=== PATIENT | female | born 1960 | race Caucasian/White ===

== ENCOUNTER → 2016-11-30 | Day surgery (SDC) | payer BC ==
[~2016-11-30] MED LIST: ABILIFY PO; ABILIFY10 MG PO; ABILIFY20 MG PO; ABILIFY30 MG PO; ALENDRONATE SOD70 M1 PO; BENICAR20 MG PO; CYTOMEL5 MCG PO; FISH OIL 1,0001 EACH PO; FISH OIL CONCET1 CAP PO; FOSAMAX70 MG PO; LEXAPRO PO; LEXAPRO20 MG PO; MULTIPLE VITAM1 EAC1; MULTIVITAMINS1 EAC2 PO; NORTRIPTYLINE H50 MG PO; PAMELOR PO; PAMELOR25 M2 PO; PAMELOR50 MG PO; PROZAC PO; TUMS200 MG; TUMS500 MG PO; VITAMIN D1000 UNI1 PO; VITAMIN D2000 UNIT PO
--- NOTE | ~2016-11-30 | ECT ---
Unit #: [id number] #: [id number] Patient: RAMBO ROSARIO [id number] [place] [id number] [id number] O MR#: [id number] NAME: RAMBO ROSARIO ROOM: Age: 56 Sex: F Admission Date: 11/30/2016 : 1960 Discharge Date: Attending Physician: Jabier Jernigan M.D. Primary Care Physician: Tomi Morrison III, M.D. ECT NOTE DATE OF TREATMENT 11/30/2016 TREATMENT NUMBER 7, maintenance TREATMENT MODALITY Unilateral ECT ANESTHESIA Glycopyrrolate: 0.2 mg Brevital: 130 mg Succinylcholine: 100 mg TREATMENT PARAMETERS Charge: 360 millicoulombs Pulse Width: 1.0 milliseconds Frequency: 50 Hertz Duration: 4.5 seconds Current: 800 milliamps TREATMENT DELIVERED Energy: 80.7 joules Impedance: 268 ohms Charge: 360 millicoulombs SEIZURE MEASURES OMS: 10 seconds EE seconds COMPLICATIONS None. SUMMARY The patient had a good seizure with both OMS and EEG measures. Depression seems to be pretty well maintained with her maintenance ECT's every 2 months, so will bring her back in 8 weeks for her next ECT and just continue to treat and follow. DIFFERENTIAL DIAGNOSES AXIS I: F33.2. AXIS II: Deferred. AXIS III: Nothing acute. Unit #: [id number] #: [id number] Patient: RAMBO ROSARIO Dictated by... Ila Avendaño/mimi TD: 12/01/2016 13:46 JOB #: [id number] ECT NOTE X Jabier Jernigan MD <ELECTRONICALLY SIGNED> 05/14/17 1702 X ECT
== END | disposition home or self-care (01) ==
LOC: CSUR 07:41
DX: F33.2 Major depressive disorder, recurrent severe without psychotic features (principal); I10 Essential (primary) hypertension; M81.0 Age-related osteoporosis without current pathological fracture; Z88.0 Allergy status to penicillin; Z88.1 Allergy status to other antibiotic agents; Z79.899 Other long term (current) drug therapy; Z98.890 Other specified postprocedural states
CPT/HCPCS: 90870; J0330

== ENCOUNTER → 2017-01-25 | Day surgery (SDC) | payer BC ==
--- NOTE | ~2017-01-25 | ECT ---
Unit #: [id number] #: [id number] Patient: RAMBO ROSARIO [id number] [place] [address] [id number] O MR#: [id number] NAME: RAMBO ROSARIO ROOM: Age: 56 Sex: F Admission Date: 01/25/2017 : 1960 Discharge Date: Attending Physician: Jabier Jernigan M.D. Primary Care Physician: Tomi Morrison III, M.D. ECT NOTE DATE OF TREATMENT 01/25/2017 TREATMENT NUMBER 8, maintenance TREATMENT MODALITY Unilateral ECT. ANESTHESIA Glycopyrrolate: 0.2 mg. Brevital: 130 mg. Succinylcholine: 120 mg. TREATMENT PARAMETERS Charge: 360 millicoulombs Pulse Width: 1.0 milliseconds Frequency: 50 Hertz Duration: 4.5 seconds Current: 800 milliamps TREATMENT DELIVERED Energy: 82.5 joules Impedance: 277 ohms Charge: 360 millicoulombs SEIZURE MEASURES OMS: 11 seconds EE seconds COMPLICATIONS None. SUMMARY The patient had a good seizure with her maintenance ECTs. She has done pretty well in the last 8 weeks. We will (1) __ her ECTs down to 10 weeks and just treat and follow. DIFFERENTIAL DIAGNOSES AXIS I: F33.2 AXIS II: Deferred. AXIS III: Nothing acute. Unit #: [id number] #: [id number] Patient: RAMBO ROSARIO Dictated by... Ila Avendaño/yana TD: 01/25/2017 09:58 JOB #: [id number] ECT NOTE Page 1 of 1 X Jabier Jernigan MD <ELECTRONICALLY SIGNED> 04/22/17 1207 X ECT
== END | disposition home or self-care (01) ==
LOC: CSUR 07:42
DX: F33.2 Major depressive disorder, recurrent severe without psychotic features (principal); I10 Essential (primary) hypertension; Z79.899 Other long term (current) drug therapy; M81.0 Age-related osteoporosis without current pathological fracture; Z87.898 Personal history of other specified conditions; Z85.820 Personal history of malignant melanoma of skin; Z88.0 Allergy status to penicillin; Z88.4 Allergy status to anesthetic agent
CPT/HCPCS: 90870; J0330

== ENCOUNTER → 2017-04-05 | Day surgery (SDC) | payer BC ==
--- NOTE | ~2017-04-05 | ECT ---
Unit #: [id number] #: [id number] Patient: RAMBO ROSARIO [id number] [id number] O MR#: [id number] NAME: RAMBO ROSARIO. ROOM: Age: 57 Sex: F Admission Date: 04/05/2017 : 1960 Discharge Date: Attending Physician: Jabier Jernigan M.D. Referring Physician: Jabier Jernigan M.D. Primary Care Physician: Tomi Morrison III, M.D. ECT NOTE DATE OF TREATMENT 04/05/2017 TREATMENT NUMBER 9 maintenance TREATMENT MODALITY Unilateral ECT. ANESTHESIA Glycopyrrolate: 0.2 mg. Brevital: 130 mg. Succinylcholine: 100 mg. TREATMENT PARAMETERS Charge: 360 millicoulombs Pulse Width: 1.0 milliseconds Frequency: 50 Hertz Duration: 4.5 seconds Current: 800 milliamps TREATMENT DELIVERED Energy: 82.3 joules Impedance: 277 ohms Charge: 360 millicoulombs SEIZURE MEASURES OMS: 9 seconds EE seconds COMPLICATIONS None. SUMMARY The patient had a good seizure with both OMS and EEG measures. Depression seems to be pretty well maintained with her maintenance ECTs. During the last several weeks, she has started to note some increased depressive symptoms. We started her on Lexapro, and she did have some initial response to it, but that seems to have waned a bit. I will increase her Lexapro to 20 mg a day, and once we get her established with her new ECT practitioner, she will resume her maintenance ECT in the next few months. DIFFERENTIAL DIAGNOSES AXIS I: F33.2 Unit #: [id number] #: [id number] Patient: RAMBO ROSARIO AXIS II: Deferred. AXIS III: Nothing acute. Dictated by... Ila Avendaño/yana TD: 04/05/2017 09:39 JOB #: [id number] ECT NOTE Page 1 of 1 X Jabier Jernigan MD <ELECTRONICALLY SIGNED> 04/22/17 1207 X ECT
== END | disposition home or self-care (01) ==
LOC: CSUR 07:47
DX: F33.2 Major depressive disorder, recurrent severe without psychotic features (principal); I10 Essential (primary) hypertension
CPT/HCPCS: 90870

== ENCOUNTER 2017-04-23 12:10 | Emergency (ER) | payer BC ==
[~2017-04-23] VITALS: Ht 167.6 cm; Wt 57.6 kg
--- NOTE | ~2017-04-23 | MR18 ---
[facility] A Service of [facility] & [facility] RADIOLOGY TEXT RESULTS PATIENT: RAMBO ROSARIO LOCATION: [facility] : 58 UNIT #: [id number] AGE: [address]: Kelin Conley MD SEX: F ORDER DR: [id number] [facility] [address] [place], [place] [address] [id number] MR#: [id number] #: [id number] NAME: RAMBO ROSARIO. : 1960 SEX: F STUDY DATE/TIME: 04/23/2017 16:44 UNIT: [facility] ROOM: STUDY DESCRIPTION: MR Brain Wo Contrast Attending Physician: Kelin Conley M.D. Ordering Physician: Tomi Morrison III, M.D. Primary Care Physician: Tomi Morrison III, M.D. MEDICAL IMAGING REPORT This report is preliminary unless electronic signature is present EXAM MRI brain 04/23/2017 HISTORY Tremors in arms/legs increased tremors arms legs, left greater than right 3-4 days less worse today. Difficulty walking. TECHNIQUE Following MR sequences were obtained through the brain: T1 sagittal and axial, FLAIR T2 diffusion-weighted gradient-echo axial. COMPARISON No prior imaging of brain for comparison. FINDINGS The brainstem is unremarkable. The cerebellum and cerebral hemispheres show normal hayes matter-white matter differentiation. No hemorrhage. No diffusion weighted hyperintensity to suggest acute to subacute ischemic change. Midline structures are nondisplaced. CSF intensity structure, posterior aspect of the posterior fossa, measuring approximately 2.6 cm x 4.1 cm x 4.4 cm, favored to be arachnoid cyst. There is some mass effect on cerebellum with no underlying signal abnormality in the cerebellum. This is favored to be of chronic time course. Comparison with any prior studies would be useful to assess for twisting frame changer time. There are mild periventricular signal changes probably reflecting sequelae of chronic microvascular ischemia. Tiny right frontal, anterior, and posterior foci of FLAIR and T2 hyperintensity. The larger of these is the posterior focus, measuring about 3-4 mm in diameter. No mass effect. Slightly hypodense on T1-weighted imaging. Favored to be a small focus of chronic microvascular ischemia. Midline structures are nondisplaced. Ventricles, cisterns, and sulci within normal limits of size and contour. No intraaxial mass effect. Major vascular flow voids appear intact. The visualized paranasal sinuses and mastoid air cells appear clear. [facility] A Service of [facility] & [facility] RADIOLOGY TEXT RESULTS PATIENT: RAMBO ROSARIO LOCATION: [facility] : 58 UNIT #: [id number] AGE: [address]: Kelin Conley MD SEX: F ORDER DR: IMPRESSION 1. There are no clearly acute abnormalities seen in the brain. If the patient has ongoing neurologic symptoms, consider follow up imaging. If followup imaging is performed, consider assessment with contrast-enhanced MRI, if the patient is a candidate for gadolinium-based contrast. 2. Mild periventricular probable sequelae of chronic microvascular ischemia. 3. 2 tiny foci of subcortical white matter on FLAIR and T2 hyperintensity in the right frontal lobe. The larger is posterior and measures about 3-4 mm in maximum diameter. No mass effect. Favored to be a small focus of chronic ischemic change. 4. There is a CSF intensity localized structure, posterior aspect of the posterior fossa. It measures approximately 4.1 cm x 2.6 cm x 4.4 cm. The appearance and location suggest arachnoid cyst. There is some mass effect on the subjacent cerebellum that I believe is chronic in time course. There are no abnormal signal changes in the cerebellum. Dictated by... Adonis Burris M.D. THIS IS AN ELECTRONICALLY VERIFIED REPORT Adonis Burris M.D. at 05/03/2017 6:15 PM Froylan TD: 04/23/2017 19:17 JOB #: [id number] MEDICAL IMAGING REPORT Page 1 of 1 COPY
[~2017-04-23 12:10] MED LIST changes: -ABILIFY30 MG PO; -ALENDRONATE SOD70 M1 PO; -LEXAPRO20 MG PO; -MULTIVITAMINS1 EAC2 PO; -PAMELOR50 MG PO; -TUMS500 MG PO; -VITAMIN D2000 UNIT PO
[2017-04-23 13:03] LABS: BASOPHIL% 0.5 % (0-2.5); EOSINOPHIL# 0.1 X10e3 (0-0.7); EOSINOPHIL% 0.9 % (0.0-7.0); HEMATOCRIT 42.5 % (35.0-45.0); HEMOGLOBIN 13.9 gm/dL (12.0-16.0); LYMPHOCYTE# 1.3 X10e3 (1.0-3.5); LYMPHOCYTE% 16.3 % (17.0-45.0); MEAN CELL VOLUME 101.2 FL (83-96); MEAN CORPUSCULAR HEMOGLOBIN 33.2 PG (28-34); MEAN CORPUSCULAR HGB CONC 32.8 g/dL (30-36); MEAN PLATELET VOLUME 10.2 FL (6.5-11.5); MONOCYTE# 0.5 X10e3 (0-1.0); MONOCYTE% 6.5 % (3.0-12.0); NEUTROPHIL% 75.8 % (40-75); PLATELET COUNT 219 X10e3 (140-420); RED CELL DISTRIBUTION WIDTH 13.8 % (11.0-15.5)
[2017-04-23 13:06] LABS: DIFF IND NO
[2017-04-23 13:12] LABS: POC - CKMB <1.0 ng/mL (0.0-7.9); POC - TROPONIN <0.05 ng/mL (<=0.05)
[2017-04-23 13:16] LABS: PARTIAL THROMBOPLASTIN TIME 26.2 SECONDS (23.5-31.3); PROTHROMBIN TIME (PATIENT) 10.9 SECONDS (10.0-11.7)
[2017-04-23 13:28] LABS: ALBUMIN SERUM 4.4 g/dL (3.5-5.0); BILIRUBIN, DIRECT 0.1 mg/dL (0.0-0.2); BILIRUBIN,INDIRECT 0.4 mg/dL (0.0-0.9); BILIRUBIN,TOTAL 0.5 mg/dL (0.2-2.0); BUN/CREATININE RATIO 22.5; CALCIUM SERUM 9.4 mg/dL (8.4-10.2); CREATININE SERUM 0.8 mg/dL (0.6-1.4); GLOM FILT RATE Estimated 81.3 mL/min (>60); MAGNESIUM 2.4 mg/dL (1.6-3.0); POTASSIUM 4.3 mmol/L (3.5-5.1); PROTEIN TOTAL SERUM 6.9 g/dL (6.0-8.3)
[2017-04-23 14:14] LABS: URINE SOURCE CLEAN CATCH
[2017-04-23 14:32] LABS: URINE APPEARANCE CLEAR; URINE BILIRUBIN NEG (NEG); URINE BLOOD NEG (NEG); URINE COLOR YELLOW; URINE GLUCOSE NEG (NEG); URINE KETONE NEG (NEG); URINE LEUKOCYTE ESTERASE TRACE (NEG); URINE NITRATE NEG (NEG); URINE PH 7.5 (5-8); URINE PROTEIN NEG (NEG); URINE SPECIFIC GRAVITY 1.011 (1.003-1.035); URINE UROBILINOGEN 0.2 MG/DL (NEG)
[2017-04-23 14:34] LABS: CULTURE INDICATED? YES; URBCS1 AUWI 0-2 /[HPF] (0-2); URINE BACTERIA AUWI 4+ (NEGATIVE); URINE SQUAMOUS EPITHELIAL CELL NONE SEEN /[HPF]
[2017-04-23 14:35] LABS: AMPHETAMINE NEG (NEG); BARBITURATES NEG (NEG); BENZODIAZEPINES NEG (NEG); COCAINE NEG (NEG); MARIJUANA NEG (NEG); OPIATES NEG (NEG); TRICYCLIC ANTIDEPRESSANTS POS (NEG); U METHADONE NEG (NEG)
[2017-04-23 14:49] LABS: POC - CKMB <1.0 ng/mL (0.0-7.9); POC - TROPONIN <0.05 ng/mL (<=0.05)
[2017-04-24] MEDS ORDERED: PAMELOR50 MG PO (22:36)
[2017-04-24] MEDS ORDERED: ALENDRONATE SOD70 M1 PO (22:37)
[2017-04-24] MEDS ORDERED: LEXAPRO20 MG PO (22:37)
[2017-04-24] MEDS ORDERED: ABILIFY30 MG PO (22:37)
[2017-04-24] MEDS ORDERED: MULTIVITAMINS1 EAC2 PO (22:37)
[2017-04-24] MEDS ORDERED: TUMS500 MG PO (22:38)
[2017-04-24] MEDS ORDERED: VITAMIN D2000 UNIT PO (22:38)
== END 2017-04-23 20:16 | disposition home or self-care (01) ==
LOC: CED 12:10
PROVIDERS: Emergency Medicine
DX: R25.1 Tremor, unspecified (principal); F32.9 Major depressive disorder, single episode, unspecified; Z88.0 Allergy status to penicillin; Z79.899 Other long term (current) drug therapy
CPT/HCPCS: 36415; 70551; 80048; 80076; 80307; 81003; 82553; 82947; 83735; 84484; 85025; 85610; 85730; 87086; 87088; 87186; 99284

== ENCOUNTER 2017-04-24 20:09 | Emergency (ER) | payer BC ==
--- NOTE | ~2017-04-24 | EKG ---
PATIENT: RAMBO ROSARIO UNIT #: [id number] Ventricular Rate: 77 BPM Atrial Rate: 77 BPM P-R Interval: 186 ms QRS Duration: 90 ms Q-T Interval: 406 ms QTC Calculation(Bezet): 459 ms P Bynum: 71 degrees Calculated R Bynum: 75 degrees Calculated T Bynum: 77 degrees Diagnosis Line: Normal sinus rhythm Diagnosis Line: Normal ECG Diagnosis Line: When compared with ECG of 09-NOV-2015 11:58, Diagnosis Line: No significant change was found Diagnosis Line: Confirmed by MIGUE LOPEZ MD ([id number]) on 04/27/2017 Diagnosis Line: 8:09:08 AM INTERPRETING MD: JESSICA HOWELL
[2017-04-24] MEDS ORDERED: PAMELOR50 MG PO (22:36)
[2017-04-24] MEDS ORDERED: ABILIFY30 MG PO (22:37)
[2017-04-24] MEDS ORDERED: LEXAPRO20 MG PO (22:37)
[2017-04-24] MEDS ORDERED: MULTIVITAMINS1 EAC2 PO (22:37)
[2017-04-24] MEDS ORDERED: ALENDRONATE SOD70 M1 PO (22:37)
[2017-04-24] MEDS ORDERED: TUMS500 MG PO (22:38)
[2017-04-24] MEDS ORDERED: VITAMIN D2000 UNIT PO (22:38)
[2017-04-24 23:09] LABS: BASOPHIL% 0.4 % (0-2.5); DIFF IND NO; EOSINOPHIL# 0.1 X10e3 (0-0.7); EOSINOPHIL% 1.2 % (0.0-7.0); HEMATOCRIT 42.1 % (35.0-45.0); HEMOGLOBIN 14.1 gm/dL (12.0-16.0); LYMPHOCYTE% 23.2 % (17.0-45.0); MEAN CELL VOLUME 100.1 FL (83-96); MEAN CORPUSCULAR HEMOGLOBIN 33.6 PG (28-34); MEAN CORPUSCULAR HGB CONC 33.6 g/dL (30-36); MEAN PLATELET VOLUME 10.1 FL (6.5-11.5); MONOCYTE# 0.8 X10e3 (0-1.0); MONOCYTE% 9.5 % (3.0-12.0); NEUTROPHIL# 5.7 X10e3 (1.5-7.1); NEUTROPHIL% 65.7 % (40-75); PLATELET COUNT 222 X10e3 (140-420); WHITE BLOOD COUNT 8.6 X10e3 (4.0-10.5)
[2017-04-24 23:14] LABS: POC - CKMB 1.5 ng/mL (0.0-7.9); POC - TROPONIN <0.05 ng/mL (<=0.05)
[2017-04-24 23:41] LABS: ALBUMIN SERUM 4.2 g/dL (3.5-5.0); BILIRUBIN, DIRECT 0.2 mg/dL (0.0-0.2); BILIRUBIN,INDIRECT 0.3 mg/dL (0.0-0.9); BILIRUBIN,TOTAL 0.5 mg/dL (0.2-2.0); BUN/CREATININE RATIO 23.33; CALCIUM SERUM 9.6 mg/dL (8.4-10.2); CREATININE SERUM 0.9 mg/dL (0.6-1.4); GLOM FILT RATE Estimated 70.5 mL/min (>60); POTASSIUM 4.1 mmol/L (3.5-5.1); PROTEIN TOTAL SERUM 6.9 g/dL (6.0-8.3)
[2017-04-24 23:53] LABS: URINE SOURCE CLEAN CATCH
[2017-04-24 23:59] LABS: URINE APPEARANCE SL CLOUDY; URINE BLOOD NEG (NEG); URINE COLOR YELLOW; URINE GLUCOSE NORM (NORM); URINE KETONE NEG (NEG); URINE LEUKOCYTE ESTERASE 3+ (NEG); URINE NITRATE POS (NEG); URINE PROTEIN 1+ (NEG); URINE SPECIFIC GRAVITY 1.025 (1.003-1.035); URINE UROBILINOGEN NORM (NORM)
[2017-04-25 00:20] LABS: URINE BILIRUBIN NEG (NEG)
[2017-04-25 00:22] LABS: CULTURE INDICATED? YES; URINE BACTERIA AUWI 4+ (NEGATIVE); URINE CRYSTALS CALCIUM OXALATE /[HPF]; URINE SQUAMOUS EPITHELIAL CELL MODERATE /[HPF]
== END 2017-04-25 03:58 | disposition home or self-care (01) ==
LOC: CED 20:09
PROVIDERS: Emergency Medicine
DX: R53.1 Weakness (principal); I95.1 Orthostatic hypotension; Z88.0 Allergy status to penicillin; Z79.899 Other long term (current) drug therapy; W18.30XA Fall on same level, unspecified, initial encounter; Y92.009 Unspecified place in unspecified non-institutional (private) residence as the place of occurrence of the external cause
CPT/HCPCS: 36415; 80048; 80076; 81003; 82550; 82553; 84484; 85025; 87086; 93005; 96360; 96361; 99284